=== PATIENT | male | born 1955 ===

== ENCOUNTER 2024-02-07 12:50 | Outpatient (CLI) | payer OTHER, SELFPAY ==
--- NOTE | ~2024-02-07 | CT_ITS ---
Clinical Indication: Renal cell carcinoma CT Scan of the Chest with Contrast: Technique: Contiguous sections were acquired throughout the chest after intravenous administration of 100 cc of Omnipaque 350. Dose reduction technique was used on this scan by utilizing automated expos ure control and iterative reconstruction technique. The dose-length product (DLP) was 356.52 mGy-cm. Findings: There is no evidence of any significant mediastinal, hilar or axillary lymphadenopathy. There is no f illing defect in the pulmonary arterial tree to suggest pulmonary embolus. There is no evidence of ao rtic dissection or aneurysm. There is no evidence of pleural or pericardial effusion. The lungs are clear. No pulmonary nodules or infiltrates are noted. Images through the upper abdomen reveal hepatic cyst. Impression: No metastatic disease seen in the thorax. Reviewed, dictated and finalized at [facility]. Impression: No metastatic disease seen in the thorax.
--- NOTE | ~2024-02-07 | CT_ITS ---
CT of the Abdomen: Indication: Left renal cell carcinoma Technique: 2.5 mm axial scans were obtained through the abdomen prior to and following following int ravenous administration of 100 cc of Omnipaque 350. Dose reduction technique was used on this scan by utilizing automated exposure control and iterative reconstruction technique. The dose-length product (DLP) was 1246.48 mGy-cm. Findings: Scans through the lung bases are unremarkable. Hepatic cyst present toward the dome of liver. Cholecystectomy clips are noted. The spleen, pancreas, and adrenal glands are within normal limits. Nonobstructing right lower pole renal stones are presen t, measuring up to 8 mm in diameter. Simple left renal cyst present. There is postoperative change at the inferior left renal pole related to prior partial nephrectomy or mass resection. No residual sher picious mass lesion identified. There are mild atherosclerotic calcifications of the aorta. No lymph adenopathy. Visualized bowel loops are unremarkable. No ascites Impression: Status post partial left nephrectomy. No recurrent mass lesion or evidence for metastatic disease in the abdomen. Nonobstructing right renal stones, as above. Reviewed, dictated and finalized at location . Impression: Status post partial left nephrectomy. No recurrent mass lesion or evidence for metastatic disease in the abdomen. Nonobstructing right renal stones, as above.
[2024-02-07 13:31] LABS: Estimated Glomerular Filt Rate 55
== END 2024-02-07 12:51 | disposition home or self-care (01) ==
LOC: MICIMG 12:51
PROVIDERS: PCP Urology; Visit Provider Urology
DX: C64.2 Malignant neoplasm of left kidney, except renal pelvis (principal); N20.0 Calculus of kidney; Z90.5 Acquired absence of kidney
CPT/HCPCS: 71260; 74170; Q9967